=== PATIENT | male | born 1970 | race Caucasian/White ===

== ENCOUNTER 2017-09-22 13:25 | Emergency (ER) | payer SELFPAY ==
[~2017-09-22] VITALS: Ht 175.3 cm; Wt 100.4 kg
[2017-09-22 13:52] VITALS: BP 150/103
--- NOTE | 2017-09-22 13:57 | NUR ---
Patient ambulated to bed 08.
--- NOTE | 2017-09-22 14:19 | NUR ---
Kumar ruvalcaba in ED - 09/22/17 at [address] Sam at bedside to evaluate patient.
--- NOTE | 2017-09-22 14:25 | NUR ---
XRAY at bedside.
--- NOTE | 2017-09-22 14:30 | NUR ---
Dr. Sam at bedside to evaluate patient.
[2017-09-22 14:45] LABS: BASOPHILS # (AUTO) 0.2 K/uL (0.00-0.22); BASOPHILS % (AUTO) 1.9 % (0.0-2.0); EOSINOPHILS # (AUTO) 0.2 K/uL (0-0.4); HEMATOCRIT 41.6 % (36-52); HEMOGLOBIN 13.9 g/dL (12.0-18.0); LYMPHOCYTES # (AUTO) 1.6 K/uL (2.0-11.5); LYMPHOCYTES % (AUTO) 15.5 % (20.5-51.1); MEAN CORPUSCULAR HEMOGLOBIN 29 pg (27-31); MEAN CORPUSCULAR HGB CONC 33 g/dL (33-37); MEAN CORPUSCULAR VOLUME 86 fL (80-94); MONOCYTES # (AUTO) 0.9 K/uL (0.8-1.0); MONOCYTES % (AUTO) 8.7 % (1.7-9.3); NEUTROPHILS # (AUTO) 7.6 K/uL (1.8-7.7); NEUTROPHILS % (AUTO) 71.9 % (42.2-75.2); PLATELET COUNT (AUTO) 322 K/uL (140-450); RED BLOOD CELL COUNT(AUTO) 4.83 MIL/uL (4.20-6.10); RED CELL DISTRIBUTION WIDTH 13.4 % (11.6-13.7); WHITE BLOOD COUNT (AUTO) 10.5 K/uL (4.8-10.8)
[2017-09-22 14:50] LABS: ANION GAP 15.9 (8-16); CARBON DIOXIDE 25.9 mmol/L (21-32); POTASSIUM 3.8 mmol/L (3.5-5.1); PROTHROMBIN TIME 10.3 secs (10.8-13.4)
[2017-09-22 14:56] LABS: ALBUMIN 3.6 g/dL (3.4-5.0); TOTAL BILIRUBIN 0.3 mg/dL (0.0-1.0)
--- NOTE | 2017-09-22 15:55 | NUR ---
SPOKE WITH PT ABOUT PT'S TROP LEVEL---WILL REPEAT TROP LEVEL IN 3 HRS AT THAT POINT THEY WILL DECIDE TO ADMIT OR DC .
--- NOTE | 2017-09-22 17:48 | NUR ---
LAYING SEMI-IGLESIAS'S, A/O X 4 DENIES SOB, DENIES CP--NO KEBEDE AT THIS TIME---STATES, "FEELING MORE AT EASE"
--- NOTE | 2017-09-22 17:49 | NUR ---
WILL REPEAT EKG AND TROP DRAW
[2017-09-22 18:59] LABS: APPEARANCE,URINE CLEAR (CLEAR); BILIRUBIN,URINE NEGATIVE (NEGATIVE); BLOOD, URINE NEGATIVE (NEGATIVE); COLOR,URINE YELLOW (YELLOW); LEUKOCYTE ESTERASE ,URINE NEGATIVE (NEGATIVE); NITRITE, URINE NEGATIVE (NEGATIVE); PH,URINE 6.5 (5.0-9.0); UGLUCOSE NEGATIVE (NEGATIVE)
[2017-09-22 19:03] VITALS: BP 145/86
--- NOTE | 2017-09-22 19:03 | NUR ---
Patient discharged with v/s stable. Written and verbal after care instructions given and explained. Patient verbalized understanding. Ambulatory with steady gait. All questions addressed prior to discharge. Advised to follow up with PMD AND TAKE LAB RESULTS HANDED TO YOU.
== END 2017-09-22 19:03 | disposition home or self-care (01) ==
LOC: MED 13:25
DX: R07.89 Other chest pain (principal); R42 Dizziness and giddiness; I10 Essential (primary) hypertension
CPT/HCPCS: 36415; 71010; 80053; 81003; 83880; 84484; 85025; 85610; 93005; 99285